=== PATIENT | male | born 1970 | race Caucasian/White ===

== ENCOUNTER 2019-12-24 03:18 | Emergency (ER) | payer MEDICAID ==
[~2019-12-24] VITALS: Ht 170.2 cm; Wt 75.7 kg
[2019-12-24 03:31] VITALS: BP 150/78
--- NOTE | 2019-12-24 03:33 | NUR ---
DR ZHANG AT BEDSIDE EXAMINING PT.
--- NOTE | 2019-12-24 03:45 | NUR ---
49 Y/O MALE PRESENTS TO ED, C/O COUGHING AND SORE THROAT X3 DAYS. PT STATES PAIN IS 8/10. NO SOB/ DIFFICULTY BREATHING; PT DENIES ANY CHEST PAIN. LUNG SOUNDS BILAT CLEAR. NO MEDICATIONS PRIOR COMING TO ED. PT DENIES ANY FEVER. NO N/V/D. PT VSS. ERMD AWARE. WILL CONTINUE TO MONITOR.
[2019-12-24 04:24] VITALS: BP 150/78
--- NOTE | 2019-12-24 04:25 | NUR ---
PT DISCHARGED WITH PAPERWORK. EDUCATED PT REGARDING MEDICATIONS AND D/C INSTRUCTIONS. PT VERBALIZED UNDERSTANDING OF TEACHING. TOLD PT TO FOLLOW UP WITH PCP AND WHEN TO RETURN TO ED. PT STABLE CONDITION. ALL QUESTIONS ANSWERED.
== END 2019-12-24 04:25 | disposition home or self-care (01) ==
LOC: MED 03:18
DX: J02.8 Acute pharyngitis due to other specified organisms (principal); J40 Bronchitis, not specified as acute or chronic; M79.10 Myalgia, unspecified site
CPT/HCPCS: 87804; 99283

== ENCOUNTER 2020-11-25 10:43 | Emergency (ER) | payer MEDICAID ==
[~2020-11-25] VITALS: Ht 165.1 cm; Wt 68.0 kg
[2020-11-25 11:39] VITALS: BP 143/86
[2020-11-25 13:40] VITALS: BP 140/76
--- NOTE | 2020-11-25 13:41 | NUR ---
Patient discharged with v/s stable. Written and verbal after care instructions given and explained. Patient alert, oriented and verbalized understanding of instructions. Ambulatory with steady gait. All questions addressed prior to discharge. ID band removed. Patient advised to follow up with PMD. Rx of NAPROSYN, AZITHROMYCIN, ROBITUSSIN, ALBUTEROL given. Patient educated on indication of medication including possible reaction and side effects. Opportunity to ask questions provided and answered.
== END 2020-11-25 13:41 | disposition home or self-care (01) ==
LOC: MED 10:43
DX: U07.1 COVID-19 (principal); J12.89 Other viral pneumonia
CPT/HCPCS: 71045; 99283

== ENCOUNTER 2022-09-12 11:32 | Emergency (ER) | payer MEDICAID, OTHER ==
[~2022-09-12] VITALS: Ht 167.6 cm; Wt 74.4 kg
[2022-09-12 11:51] VITALS: BP 114/62
--- NOTE | 2022-09-12 11:54 | NUR ---
PT TO LOBBY
[2022-09-12] MEDS ORDERED: LORATADINE 10 MG TAB PO ONE (13:20)
[2022-09-12] MEDS ORDERED: methylPREDNISolone SS 125 MG in WATER STERILE 2 ML IM ONE (13:20)
[2022-09-12] MEDS ORDERED: methylPREDNISolone SS 125 MG/2 ML VIAL ONE (13:28)
[2022-09-12] MEDS ORDERED: WATER STERILE 10 ML MC ONE (13:28)
[2022-09-12] MEDS ORDERED: PRED20TA5 PO (13:42)
[2022-09-12] MEDS ORDERED: BEN50 PO (13:42)
[2022-09-12] MEDS ORDERED: LORA10SG1 PO (13:42)
[2022-09-12 13:53] VITALS: BP 156/75
--- NOTE | 2022-09-12 13:53 | NUR ---
Patient discharged with v/s stable. Written and verbal after care instructions given. Patient alert, oriented and verbalized understanding of instructions. Ambulatory with steady gait. All questions addressed prior to discharge. ID band removed. Patient advised to follow up with PMD. Rx of Benadryl, Loratadine and Deltasone given. Opportunity to ask questions provided and answered.
--- NOTE | 2022-09-12 13:57 | NUR ---
Chart checked and completed. The patient's care was reviewed and supervised by Geneva Galvez RN.
== END 2022-09-12 13:53 | disposition home or self-care (01) ==
LOC: MED 11:32
DX: R21 Rash and other nonspecific skin eruption (principal); E78.5 Hyperlipidemia, unspecified
CPT/HCPCS: 96372; 99283; J2930

== ENCOUNTER 2023-01-15 13:23 | Emergency (ER) | payer OTHER ==
[~2023-01-15] VITALS: Ht 167.6 cm; Wt 72.6 kg
[~2023-01-15 13:23] MED LIST: BEN50 PO; LORA10SG1 PO; PRED20TA5 PO
[2023-01-15 13:46] VITALS: BP 130/81
[2023-01-15] MEDS ORDERED: BPM/118S31 PO (15:03)
[2023-01-15 15:11] VITALS: BP 130/81
--- NOTE | 2023-01-15 15:11 | NUR ---
Patient discharged with v/s stable. Written and verbal after care instructions given and explained. Patient alert, oriented and verbalized understanding of instructions. Ambulatory with steady gait. All questions addressed prior to discharge. ID band removed. Patient advised to follow up with PMD. Rx of bromfed dm (sent) given. Patient educated on indication of medication including possible reaction and side effects. Opportunity to ask questions provided and answered.
== END 2023-01-15 15:11 | disposition home or self-care (01) ==
LOC: MED 13:23
DX: J06.9 Acute upper respiratory infection, unspecified (principal); Z79.899 Other long term (current) drug therapy
CPT/HCPCS: 71045; 99283

== ENCOUNTER 2023-10-26 15:21 | Emergency (ER) | payer OTHER ==
[~2023-10-26] VITALS: Ht 167.6 cm; Wt 68.0 kg
[~2023-10-26 15:21] MED LIST changes: +BROM118S70 PO
[2023-10-26 16:13] VITALS: BP 127/86; PULSE 68; RESP 18; TEMP 97; O2SAT 98
[2023-10-26 17:20] LABS: BASOPHILS # (AUTO) 0.1 K/uL (0.00-0.22); BASOPHILS % (AUTO) 0.9 % (0.0-2.0); EOSINOPHILS # (AUTO) 0.1 K/uL (0-0.4); HEMOGLOBIN 17.6 g/dL (12.0-18.0); LYMPHOCYTES # (AUTO) 2.1 K/uL (2.0-11.5); LYMPHOCYTES % (AUTO) 31.4 % (20.5-51.1); MEAN CORPUSCULAR HEMOGLOBIN 31 pg (27-31); MEAN CORPUSCULAR HGB CONC 35 g/dL (33-37); MEAN CORPUSCULAR VOLUME 89.7 fL (80-94); MONOCYTES # (AUTO) 0.5 K/uL (0.8-1.0); NEUTROPHILS # (AUTO) 3.8 K/uL (1.8-7.7); NEUTROPHILS % (AUTO) 57.7 % (42.2-75.2); PLATELET COUNT (AUTO) 241 K/uL (140-450); RED BLOOD CELL COUNT(AUTO) 5.68 MIL/uL (4.20-6.10); RED CELL DISTRIBUTION WIDTH 13.4 % (11.6-13.7); WHITE BLOOD COUNT (AUTO) 6.6 K/uL (4.8-10.8)
[2023-10-26 17:38] LABS: INR 0.99 (0.8-1.2); PARTIAL THROMBOPLASTIN TIME 26.3 secs (22-35.6); PROTHROMBIN TIME 10.4 secs (10.8-13.4)
[2023-10-26 17:40] LABS: ANION GAP 15.3 (8-16); CARBON DIOXIDE 26.4 mmol/L (21-32); POTASSIUM 4.7 mmol/L (3.5-5.1); TOTAL BILIRUBIN 0.7 mg/dL (0.0-1.0)
[2023-10-26 17:56] LABS: CALCIUM 9.4 mg/dL (8.5-10.1)
[2023-10-26] MEDS ORDERED: POLY17PD72 PO (18:06)
[2023-10-26] MEDS ORDERED: HYDR-2734 TP (18:06)
[2023-10-26] MEDS ORDERED: BEN10 PO (18:06)
[2023-10-26 18:30] VITALS: BP 127/86; PULSE 68; RESP 18; TEMP 97; O2SAT 98
== END 2023-10-26 18:30 | disposition home or self-care (01) ==
LOC: MED 15:21
DX: R10.30 Lower abdominal pain, unspecified (principal); K62.5 Hemorrhage of anus and rectum; Z79.899 Other long term (current) drug therapy
CPT/HCPCS: 36415; 80053; 83690; 85025; 85610; 85730; 86886; 86900; 86901; 99283

== ENCOUNTER 2023-10-30 11:58 | Emergency (ER) | payer OTHER ==
[~2023-10-30] VITALS: Ht 165.1 cm; Wt 70.3 kg
[~2023-10-30 11:58] MED LIST changes: +BEN10 PO; +HYDR-2734 TP; +POLY17PD72 PO
[2023-10-30 12:11] VITALS: BP 136/76; PULSE 80; RESP 16; TEMP 98.3; O2SAT 100
[2023-10-30 12:52] LABS: BASOPHILS # (AUTO) 0.1 K/uL (0.00-0.22); EOSINOPHILS # (AUTO) 0.1 K/uL (0-0.4); EOSINOPHILS % (AUTO) 2.5 % (0.0-4.0); HEMATOCRIT 47.7 % (36-52); HEMOGLOBIN 16.2 g/dL (12.0-18.0); LYMPHOCYTES # (AUTO) 1.8 K/uL (2.0-11.5); LYMPHOCYTES % (AUTO) 30.6 % (20.5-51.1); MEAN CORPUSCULAR HEMOGLOBIN 31 pg (27-31); MEAN CORPUSCULAR HGB CONC 34 g/dL (33-37); MEAN CORPUSCULAR VOLUME 90.4 fL (80-94); MONOCYTES # (AUTO) 0.5 K/uL (0.8-1.0); MONOCYTES % (AUTO) 9.1 % (1.7-9.3); NEUTROPHILS # (AUTO) 3.4 K/uL (1.8-7.7); NEUTROPHILS % (AUTO) 56.8 % (42.2-75.2); PLATELET COUNT (AUTO) 258 K/uL (140-450); RED BLOOD CELL COUNT(AUTO) 5.28 MIL/uL (4.20-6.10); RED CELL DISTRIBUTION WIDTH 13.2 % (11.6-13.7); WHITE BLOOD COUNT (AUTO) 5.9 K/uL (4.8-10.8)
[2023-10-30 13:02] LABS: INR 1.11 (0.8-1.2); PARTIAL THROMBOPLASTIN TIME 27.6 secs (22-35.6); PROTHROMBIN TIME 11.5 secs (10.8-13.4)
[2023-10-30 13:09] LABS: ALBUMIN 4.2 g/dL (3.4-5.0); ANION GAP 13.9 (8-16); CARBON DIOXIDE 28.1 mmol/L (21-32); CREATININE 1.1 mg/dL (0.6-1.3); TOTAL BILIRUBIN 0.8 mg/dL (0.0-1.0); TOTAL PROTEIN, SERUM 7.8 g/dL (6.4-8.2)
[2023-10-30 13:27] LABS: APPEARANCE,URINE CLEAR (CLEAR); BILIRUBIN,URINE NEGATIVE (NEGATIVE); BLOOD, URINE NEGATIVE (NEGATIVE); COLOR,URINE YELLOW (YELLOW); LEUKOCYTE ESTERASE ,URINE NEGATIVE (NEGATIVE); NITRITE, URINE NEGATIVE (NEGATIVE); PROTEIN,URINE NEGATIVE (NEGATIVE); UGLUCOSE NEGATIVE (NEGATIVE); UROBILINOGEN,URINE 0.2 EU/dL (0.2 - 1)
[2023-10-30] MEDS ORDERED: SULF-59 PO (15:14)
[2023-10-30 15:37] VITALS: BP 128/79; PULSE 84; RESP 20; TEMP 97.2; O2SAT 97
== END 2023-10-30 15:33 | disposition home or self-care (01) ==
LOC: MED 11:58
DX: K52.9 Noninfective gastroenteritis and colitis, unspecified (principal); K64.4 Residual hemorrhoidal skin tags; Z79.899 Other long term (current) drug therapy; Z79.2 Long term (current) use of antibiotics; Z90.49 Acquired absence of other specified parts of digestive tract
CPT/HCPCS: 36415; 74177; 80053; 81003; 83690; 85025; 85610; 85730; 99285; Q9967